=== PATIENT | female | born 1965 | race Caucasian/White ===

== ENCOUNTER 2016-08-05 23:14 | Emergency (ER) | payer BC ==
--- NOTE | ~2016-08-05 | CR181 ---
[facility] A Service of [facility] & [facility] RADIOLOGY TEXT RESULTS PATIENT: AUGUSTO GARCIA LOCATION: [facility] : 61 UNIT #: [id number] AGE: [address]: Kiya Gonzalez MD SEX: F ORDER DR: [id number] [facility] [address] [place], [place] [address] [id number] E MR#: [id number] Acc #: [id number] NAME: AUGUSTO GARCIA : 1965 SEX: F STUDY DATE/TIME: 08/05/2016 22:17 UNIT: [facility] ROOM: STUDY DESCRIPTION: CR Lumbar Spine 2 or 3 Views Attending Physician: Kiya Gonzalez M.D. Ordering Physician: Kiya Gonzalez M.D. Primary Care Physician: Yanna Christopher M.D. MEDICAL IMAGING REPORT This report is preliminary unless electronic signature is present EXAM Lumbar spine 3 views 08/05/2016 HISTORY Low back pain with left lower extremity radiculopathy today. FINDINGS 3 views of the lumbar spine demonstrate no fracture. The posterior vertebral body line is intact and there is no anterolisthesis or retrolisthesis. There is degenerative change with moderate disc space narrowing at L5-S1. Small anterior osteophytes are seen within the lumbar spine. Right ureteral stent is noted. IMPRESSION Mild degenerative change in the lumbar spine. No acute abnormality. Dictated by... Addison Aragon M.D. THIS IS AN ELECTRONICALLY VERIFIED REPORT Addison Aragon M.D. at 08/06/2016 2:19 PM GABBI/maite TD: 08/06/2016 06:22 JOB #: [id number] MEDICAL IMAGING REPORT COPY
--- NOTE | ~2016-08-05 | US85 ---
[facility] A Service of [facility] & [facility] RADIOLOGY TEXT RESULTS PATIENT: AUGUSTO GARCIA LOCATION: [facility] : 61 UNIT #: [id number] AGE: [address]: Kiya Gonzalez MD SEX: F ORDER DR: [id number] [facility] [address] [place], [place] [address] [id number] E MR#: [id number] Acc #: [id number] NAME: AUGUSTO GARCIA : 1965 SEX: F STUDY DATE/TIME: 08/06/2016 00:19 UNIT: [facility] ROOM: STUDY DESCRIPTION: [employer] Attending Physician: Kiya Gonzalez M.D. Ordering Physician: Kiya Gonzalez M.D. Primary Care Physician: Yanna Christopher M.D. MEDICAL IMAGING REPORT This report is preliminary unless electronic signature is present EXAM Left leg vein Doppler 08/06 at 0019 hours INDICATIONS Left leg pain and swelling for the last 3 days. TECHNIQUE Venous ultrasound examination of the left lower extremity was performed using grayscale, spectral Doppler and color flow Doppler imaging. FINDINGS The examination is negative. There is no evidence of left lower extremity deep venous thrombus from the groin to the lower calf. Visualized greater saphenous vein is also patent. IMPRESSION Negative examination. No evidence of left lower extremity deep venous thrombosis. Dictated by... Yoseph Askew Jr., M.D. THIS IS AN ELECTRONICALLY VERIFIED REPORT Yoseph Askew Jr., M.D. at 08/06/2016 10:00 PM JAYLENE/christiano TD: 08/06/2016 07:26 JOB #: [id number] MEDICAL IMAGING REPORT COPY
[2016-08-05 22:40] LABS: URINE SOURCE CLEAN CATCH
[2016-08-05 22:43] LABS: BASOPHIL# 0.1 X10e3 (0-0.3); BASOPHIL% 0.9 % (0-2.5); EOSINOPHIL# 0.2 X10e3 (0-0.7); EOSINOPHIL% 2.8 % (0.0-7.0); HEMATOCRIT 39.1 % (35.0-45.0); HEMOGLOBIN 13.1 gm/dL (12.0-16.0); LYMPHOCYTE# 1.9 X10e3 (1.0-3.5); LYMPHOCYTE% 28.7 % (17.0-45.0); MEAN CELL VOLUME 82.9 FL (83-96); MEAN CORPUSCULAR HEMOGLOBIN 27.7 PG (28-34); MEAN CORPUSCULAR HGB CONC 33.4 g/dL (30-36); MEAN PLATELET VOLUME 7.3 FL (6.5-11.5); MONOCYTE# 0.7 X10e3 (0-1.0); MONOCYTE% 11.4 % (3.0-12.0); NEUTROPHIL# 3.7 X10e3 (1.5-7.1); NEUTROPHIL% 56.2 % (40-75); PLATELET COUNT 281 X10e3 (140-420); RED BLOOD COUNT 4.72 X10e (3.90-5.30); RED CELL DISTRIBUTION WIDTH 13.4 % (11.0-15.5); WHITE BLOOD COUNT 6.5 X10e3 (4.0-10.5)
[2016-08-05 22:44] LABS: URINE APPEARANCE CLOUDY; URINE BILIRUBIN NEG (NEG); URINE BLOOD 3+ (NEG); URINE COLOR YELLOW; URINE GLUCOSE NEG (NEG); URINE KETONE NEG (NEG); URINE LEUKOCYTE ESTERASE 1+ (NEG); URINE NITRATE NEG (NEG); URINE PROTEIN 2+ (NEG); URINE SPECIFIC GRAVITY 1.018 (1.003-1.035); URINE UROBILINOGEN 0.2 MG/DL (NEG)
[2016-08-05 22:44] LABS: DIFF IND NO
[2016-08-05 22:46] LABS: CULTURE INDICATED? YES; U HYALINE CASTS AUWI 0-2 /[LPF]; URBCS1 AUWI INNUM /[HPF] (0-2); URINE BACTERIA AUWI NEG (NEGATIVE); URINE SQUAMOUS EPITHELIAL CELL NONE SEEN /[HPF]
[2016-08-05 23:19] LABS: PROTHROMBIN TIME (PATIENT) 10.3 SECONDS (9.6-11.5)
[2016-08-05 23:25] LABS: BLOOD UREA NITROGEN 16 mg/dL (9-23); BUN/CREATININE RATIO 22.85; CALCIUM SERUM 9.2 mg/dL (8.4-10.2); CARBON DIOXIDE 28 mmol/L (22-31); CHLORIDE 104 mmol/L (100-111); CREATININE SERUM 0.7 mg/dL (0.6-1.4); GLOM FILT RATE Estimated ABOVE60 mL/min (>60); GLUCOSE FASTING 99 mg/dL (70-110); POTASSIUM 3.9 mmol/L (3.5-5.1); SODIUM 137 mmol/L (135-145)
== END 2016-08-06 01:42 | disposition home or self-care (01) ==
LOC: CED 23:14
PROVIDERS: Emergency Medicine
DX: M54.32 Sciatica, left side (principal)
CPT/HCPCS: 36415; 72100; 80048; 81003; 84703; 85025; 85610; 87086; 93971; 99284